=== PATIENT | male | born 1985 | race African-American/Black ===

== ENCOUNTER 2017-09-12 14:36 | Day surgery (SDC) | payer OTHER ==
[2017-09-12] MEDS ORDERED: LACTATED RINGER'S 1,000 ML IV* (15:30)
[2017-09-12] MEDS ORDERED: MIDAZOLAM 1 MG/ML 2 ML INJ ×2 (17:07)
[2017-09-12] MEDS ORDERED: FENTAnyl 50 MCG/ML VIAL ×2 (17:07→17:09)
[2017-09-12] MEDS ORDERED: CEFAZOLIN 1 GM INJ (17:11)
[2017-09-12] MEDS ORDERED: BUPIVACAINE 0.25% (MPF) 30 ML INJ (17:13)
[2017-09-12] MEDS ORDERED: ONDANSETRON 4 MG INJ (17:18)
[2017-09-12] MEDS ORDERED: METOCLOPRAMIDE 10 MG INJ (17:18)
[2017-09-12] MEDS ORDERED: KETOROLAC 30 MG INJ (17:18)
[2017-09-12] MEDS ORDERED: DEXAMETHASONE 4 MG/ML 1 ML INJ (17:18)
[2017-09-12] MEDS ORDERED: LABETALOL HCL 20MG INJ (17:23)
[2017-09-12] MEDS: BUPIVACAINE 0.25% (MPF) 30 ML INJ (17:24)
[2017-09-12] MEDS ORDERED: OXYCODONE/ACETAMINOPHEN (5/325) TAB PO ×2 (17:30)
[2017-09-12] MEDS ORDERED: DIPHENHYDRAMINE 50 MG INJ IV (17:30)
[2017-09-12] MEDS ORDERED: METOCLOPRAMIDE 10 MG INJ IV (17:30)
[2017-09-12] MEDS ORDERED: HYDROmorphONE (0.2 MG/ML) 10ML SYG IV ×3 (17:30)
[2017-09-12] MEDS ORDERED: EPHEDrine SULFATE 50 MG/5 ML SYG IV (17:30)
[2017-09-12] MEDS ORDERED: FENTAnyl 50 MCG/ML VIAL IV ×3 (17:30)
[2017-09-12] MEDS ORDERED: ONDANSETRON 4 MG INJ IV (17:30)
[2017-09-12] MEDS ORDERED: MEPERIDINE 25 MG INJ IV (17:30)
[2017-09-12] MEDS ORDERED: LABETALOL HCL 20MG INJ IV (17:30)
[2017-09-12] MEDS: LIDOCAINE 1% (MPF) 30 ML INJ (17:33)
== END 2017-09-12 18:55 | disposition home or self-care (01) ==
LOC: SDS 14:36
DX: D21.12 Benign neoplasm of connective and other soft tissue of left upper limb, including shoulder (principal); I10 Essential (primary) hypertension
CPT/HCPCS: 26160; 88307